=== PATIENT | female | born 1945 | race Caucasian/White ===

== ENCOUNTER → 2024-01-26 12:07 | Outpatient (REF) | payer MEDICARE, SELFPAY | LOC: WOUND 12:07 | PROVIDERS: ATTENDING PHYSICIAN Surgery; FAMILY PHYSICIAN Family Medicine | DX: L97.822 Non-pressure chronic ulcer of other part of left lower leg with fat layer exposed (principal); I87.2 Venous insufficiency (chronic) (peripheral); I73.9 Peripheral vascular disease, unspecified | CPT/HCPCS: 11042; 11043; 11045; 99204 ==

== ENCOUNTER → 2024-01-27 14:26 | Outpatient (REF) | payer MEDICARE, SELFPAY | LOC: HWRAD 14:26 | PROVIDERS: ATTENDING PHYSICIAN Internal Medicine Rheumatology; FAMILY PHYSICIAN Family Medicine | DX: M81.0 Age-related osteoporosis without current pathological fracture (principal) | CPT/HCPCS: 77080 ==

== ENCOUNTER → 2024-01-28 11:50 | Outpatient (REF) | payer MEDICARE, SELFPAY ==
[2024-01-28 13:13] LABS: % Basophils 0.4 % (0-2); % Eosinophils 4.4 % (0-6); % Immature Granulocytes 0.2 % (0-0.5); % Lymphocytes 21.6 % (20.5-51.1); % Monocytes 7.9 % (1.7-9.3); % Neutrophils 65.5 % (42.2-75.2); Absolute Eosinophils 0.2 10^3/uL (0-0.7); Absolute Lymphocytes 1.1 10^3/uL (1.2-3.4); Absolute Monocytes 0.4 10^3/uL (0.1-0.6); Absolute Neutrophils 3.4 10^3/uL (1.4-6.5); Hematocrit 34.5 % (37.0-47.0); Hemoglobin 11.1 g/dL (12.0-16.0); Mean Corp Hgb Conc. 32.2 g/dL (33.0-37.0); Mean Corpuscular Hgb 30.7 pg (27.0-31.0); Mean Corpuscular Volume 95.3 fL (81.0-99.0); Mean Platelet Volume 11.1 fL (7.4-10.4); Nucleated Red Blood Cells % 0 %; Platelet Count 211 10^3/uL (130-400); Red Blood Cell Count 3.62 10^6/uL (4.20-5.40); Red Cell Dist. Width 13.9 % (11.5-14.5); White Blood Cell Count 5.2 10^3/uL (4.8-10.8)
[2024-01-28 13:52] LABS: ALT (SGPT) 16 U/L (0-35); AST (SGOT) 28 U/L (14-36); Albumin 4.1 g/dl (3.5-5.0); Alkaline Phosphatase 78 U/L (38-126); Blood Urea Nitrogen 27 mg/dl (7-17); Calcium 9.1 mg/dl (8.4-10.2); Carbon Dioxide 29 mmol/L (22-30); Chloride 103 mmol/L (98-107); Glucose 89 mg/dl (70-99); Potassium 4.1 mmol/L (3.5-5.1); Sodium 135 mmol/L (135-145); Total Bilirubin 0.5 mg/dl (0.2-1.3); Total Protein 6.9 g/dl (6.3-8.2); eGFR > 60.00
[2024-01-28 14:08] LABS: Vitamin D, 25-OH*** 56.4 ng/mL (30-80)
[2024-01-28 14:22] LABS: TSH 2.03 uIU/ml (0.47-4.68)
[2024-01-29 00:13] LABS: IgA 325 mg/dl (70-400)
[2024-01-31 11:16] LABS: Intact PTH 62.2 pg/ml (13.6-85.8)
[2024-02-01 06:42] LABS: Endomysial IgA Antibody Titer <1:10 (<1:10)
[2024-02-04 15:50] LABS: tTG IgA Antibody 10.3 EU/ml (0-19)
[2024-02-04 15:51] LABS: tTG IgG Antibody 16.9 EU/ml (0-19)
== END ==
LOC: REG 11:50
PROVIDERS: ATTENDING PHYSICIAN Internal Medicine Rheumatology; FAMILY PHYSICIAN Family Medicine
DX: E55.9 Vitamin D deficiency, unspecified (principal); M81.0 Age-related osteoporosis without current pathological fracture; Z51.81 Encounter for therapeutic drug level monitoring
CPT/HCPCS: 36415; 80053; 82306; 82784; 83516; 83970; 84443; 85025; 86140; 86231

== ENCOUNTER → 2024-02-02 13:15 | Outpatient (REF) | payer MEDICARE, SELFPAY | LOC: WOUND 13:15 | PROVIDERS: ATTENDING PHYSICIAN Surgery; FAMILY PHYSICIAN Family Medicine | DX: I87.2 Venous insufficiency (chronic) (peripheral) (principal); L97.822 Non-pressure chronic ulcer of other part of left lower leg with fat layer exposed; I73.9 Peripheral vascular disease, unspecified | CPT/HCPCS: 11042 ==

== ENCOUNTER → 2024-02-09 11:10 | Outpatient (REF) | payer MEDICARE, SELFPAY | LOC: WOUND 11:10 | PROVIDERS: ATTENDING PHYSICIAN Surgery; FAMILY PHYSICIAN Family Medicine | DX: L97.822 Non-pressure chronic ulcer of other part of left lower leg with fat layer exposed (principal); I87.2 Venous insufficiency (chronic) (peripheral); I73.9 Peripheral vascular disease, unspecified | CPT/HCPCS: 11042 ==

== ENCOUNTER → 2024-02-20 11:12 | Outpatient (REF) | payer MEDICARE, SELFPAY | LOC: WOUND 11:12 | PROVIDERS: ATTENDING PHYSICIAN Surgery; FAMILY PHYSICIAN Family Medicine | DX: L97.822 Non-pressure chronic ulcer of other part of left lower leg with fat layer exposed (principal); I87.2 Venous insufficiency (chronic) (peripheral); I73.9 Peripheral vascular disease, unspecified | CPT/HCPCS: 11042 ==

== ENCOUNTER → 2024-03-01 10:31 | Outpatient (REF) | payer MEDICARE, SELFPAY | LOC: WOUND 10:31 | PROVIDERS: ATTENDING PHYSICIAN Surgery; FAMILY PHYSICIAN Family Medicine | DX: L97.822 Non-pressure chronic ulcer of other part of left lower leg with fat layer exposed (principal); I87.2 Venous insufficiency (chronic) (peripheral); I73.9 Peripheral vascular disease, unspecified | CPT/HCPCS: 11042 ==

== ENCOUNTER → 2024-03-15 10:21 | Outpatient (REF) | payer MEDICARE, SELFPAY | LOC: WOUND 10:21 | PROVIDERS: ATTENDING PHYSICIAN Surgery; FAMILY PHYSICIAN Family Medicine | DX: L97.822 Non-pressure chronic ulcer of other part of left lower leg with fat layer exposed (principal); I87.2 Venous insufficiency (chronic) (peripheral); I73.9 Peripheral vascular disease, unspecified | CPT/HCPCS: 11042 ==

== ENCOUNTER → 2024-03-23 13:24 | Outpatient (REF) | payer MEDICARE, SELFPAY | LOC: WOUND 13:24 | PROVIDERS: ATTENDING PHYSICIAN Surgery; FAMILY PHYSICIAN Family Medicine | DX: L97.822 Non-pressure chronic ulcer of other part of left lower leg with fat layer exposed (principal); I87.2 Venous insufficiency (chronic) (peripheral); I73.9 Peripheral vascular disease, unspecified | CPT/HCPCS: 11042 ==

== ENCOUNTER → 2024-03-29 10:27 | Outpatient (REF) | payer MEDICARE, SELFPAY | LOC: WOUND 10:27 | PROVIDERS: ATTENDING PHYSICIAN Surgery; FAMILY PHYSICIAN Family Medicine | DX: L97.822 Non-pressure chronic ulcer of other part of left lower leg with fat layer exposed (principal); I87.2 Venous insufficiency (chronic) (peripheral); I73.9 Peripheral vascular disease, unspecified | CPT/HCPCS: 11042 ==

== ENCOUNTER → 2024-04-06 08:52 | Outpatient (REF) | payer MEDICARE, SELFPAY | LOC: WOUND 08:52 | PROVIDERS: ATTENDING PHYSICIAN Surgery; FAMILY PHYSICIAN Family Medicine | DX: L97.822 Non-pressure chronic ulcer of other part of left lower leg with fat layer exposed (principal); I87.2 Venous insufficiency (chronic) (peripheral); I73.9 Peripheral vascular disease, unspecified | CPT/HCPCS: 11042 ==

== ENCOUNTER → 2024-04-22 08:48 | Outpatient (REF) | payer MEDICARE, SELFPAY | LOC: WOUND 08:48 | PROVIDERS: ATTENDING PHYSICIAN Surgery; FAMILY PHYSICIAN Family Medicine | DX: L97.822 Non-pressure chronic ulcer of other part of left lower leg with fat layer exposed (principal); I87.2 Venous insufficiency (chronic) (peripheral); I73.9 Peripheral vascular disease, unspecified | CPT/HCPCS: 11042 ==

== ENCOUNTER → 2024-05-07 09:36 | Outpatient (REF) | payer MEDICARE, SELFPAY | LOC: WOUND 09:36 | PROVIDERS: ATTENDING PHYSICIAN Surgery; FAMILY PHYSICIAN Family Medicine | DX: L97.822 Non-pressure chronic ulcer of other part of left lower leg with fat layer exposed (principal); I87.2 Venous insufficiency (chronic) (peripheral); I73.9 Peripheral vascular disease, unspecified | CPT/HCPCS: 11042 ==

== ENCOUNTER → 2024-06-01 14:37 | Outpatient (REF) | payer MEDICARE, SELFPAY | LOC: WOUND 14:37 | PROVIDERS: ATTENDING PHYSICIAN Surgery; FAMILY PHYSICIAN Family Medicine | DX: L97.822 Non-pressure chronic ulcer of other part of left lower leg with fat layer exposed (principal); I87.2 Venous insufficiency (chronic) (peripheral); I73.9 Peripheral vascular disease, unspecified | CPT/HCPCS: 99213 ==

== ENCOUNTER → 2024-06-15 13:00 | Outpatient (REF) | payer MEDICARE, SELFPAY | LOC: WOUND 13:00 | PROVIDERS: ATTENDING PHYSICIAN Surgery; FAMILY PHYSICIAN Family Medicine | DX: L97.822 Non-pressure chronic ulcer of other part of left lower leg with fat layer exposed (principal); I87.2 Venous insufficiency (chronic) (peripheral); I73.9 Peripheral vascular disease, unspecified | CPT/HCPCS: 99212 ==

== ENCOUNTER → 2024-06-29 14:05 | Outpatient (REF) | payer MEDICARE, SELFPAY | LOC: WOUND 14:05 | PROVIDERS: ATTENDING PHYSICIAN Surgery; FAMILY PHYSICIAN Family Medicine | DX: L97.822 Non-pressure chronic ulcer of other part of left lower leg with fat layer exposed (principal); I87.2 Venous insufficiency (chronic) (peripheral); I73.9 Peripheral vascular disease, unspecified | CPT/HCPCS: 99212 ==

== ENCOUNTER → 2024-07-20 13:07 | Outpatient (REF) | payer MEDICARE, SELFPAY | LOC: WOUND 13:07 | PROVIDERS: ATTENDING PHYSICIAN Surgery | DX: L97.822 Non-pressure chronic ulcer of other part of left lower leg with fat layer exposed (principal); I87.2 Venous insufficiency (chronic) (peripheral); I73.9 Peripheral vascular disease, unspecified | CPT/HCPCS: 99213 ==

== ENCOUNTER → 2024-08-05 10:15 | Outpatient (REF) | payer MEDICARE, SELFPAY | LOC: WOUND 10:15 | PROVIDERS: ATTENDING PHYSICIAN Surgery; FAMILY PHYSICIAN Family Medicine | DX: L97.822 Non-pressure chronic ulcer of other part of left lower leg with fat layer exposed (principal); I87.2 Venous insufficiency (chronic) (peripheral); I73.9 Peripheral vascular disease, unspecified | CPT/HCPCS: 99213 ==

== ENCOUNTER → 2024-08-19 08:44 | Outpatient (REF) | payer MEDICARE, SELFPAY | LOC: WOUND 08:44 | PROVIDERS: ATTENDING PHYSICIAN Surgery; FAMILY PHYSICIAN Family Medicine | DX: L97.822 Non-pressure chronic ulcer of other part of left lower leg with fat layer exposed (principal); I87.2 Venous insufficiency (chronic) (peripheral); I73.9 Peripheral vascular disease, unspecified | CPT/HCPCS: 99213 ==

== ENCOUNTER → 2024-09-02 08:35 | Outpatient (REF) | payer MEDICARE, SELFPAY | LOC: WOUND 08:35 | PROVIDERS: ATTENDING PHYSICIAN Surgery; FAMILY PHYSICIAN Family Medicine | DX: L97.822 Non-pressure chronic ulcer of other part of left lower leg with fat layer exposed (principal); I87.2 Venous insufficiency (chronic) (peripheral); I73.9 Peripheral vascular disease, unspecified | CPT/HCPCS: 99212 ==

== ENCOUNTER → 2024-09-14 13:54 | Outpatient (REF) | payer MEDICARE, SELFPAY | LOC: RAD 13:54 | PROVIDERS: ATTENDING PHYSICIAN Surgery; FAMILY PHYSICIAN Family Medicine | DX: L97.822 Non-pressure chronic ulcer of other part of left lower leg with fat layer exposed (principal) | CPT/HCPCS: 93922; 93925; 93970 ==

== ENCOUNTER → 2024-09-23 08:39 | Outpatient (REF) | payer MEDICARE, SELFPAY | LOC: WOUND 08:39 | PROVIDERS: ATTENDING PHYSICIAN Surgery; FAMILY PHYSICIAN Family Medicine | DX: L97.822 Non-pressure chronic ulcer of other part of left lower leg with fat layer exposed (principal); I87.2 Venous insufficiency (chronic) (peripheral); I73.9 Peripheral vascular disease, unspecified | CPT/HCPCS: 99212 ==

== ENCOUNTER → 2024-10-14 08:47 | Outpatient (REF) | payer MEDICARE, SELFPAY | LOC: WOUND 08:47 | PROVIDERS: ATTENDING PHYSICIAN Surgery; FAMILY PHYSICIAN Family Medicine | DX: L97.822 Non-pressure chronic ulcer of other part of left lower leg with fat layer exposed (principal); I87.2 Venous insufficiency (chronic) (peripheral); I73.9 Peripheral vascular disease, unspecified | CPT/HCPCS: 99212 ==

== ENCOUNTER → 2024-10-18 14:51 | Outpatient (REF) | payer MEDICARE, SELFPAY ==
[2024-10-18 16:22] LABS: Erythrocyte Sed Rate 31 mm/hour (0-20)
[2024-10-18 16:34] LABS: C-Reactive Protein < 5.00 mg/L (0.0-10.00)
== END ==
LOC: REG 14:51
PROVIDERS: ATTENDING PHYSICIAN Orthopaedic Surgery; FAMILY PHYSICIAN Family Medicine
DX: M86.9 Osteomyelitis, unspecified (principal)
CPT/HCPCS: 36415; 73523; 73552; 85652; 86140

== ENCOUNTER → 2024-11-05 08:38 | Outpatient (REF) | payer MEDICARE, SELFPAY | LOC: WOUND 08:38 | PROVIDERS: ATTENDING PHYSICIAN Surgery; FAMILY PHYSICIAN Family Medicine | DX: L97.822 Non-pressure chronic ulcer of other part of left lower leg with fat layer exposed (principal); I87.2 Venous insufficiency (chronic) (peripheral); I73.9 Peripheral vascular disease, unspecified | CPT/HCPCS: 99212 ==

== ENCOUNTER → 2024-12-06 08:43 | Outpatient (REF) | payer MEDICARE, SELFPAY | LOC: WOUND 08:43 | PROVIDERS: ATTENDING PHYSICIAN Surgery; FAMILY PHYSICIAN Family Medicine | DX: L97.822 Non-pressure chronic ulcer of other part of left lower leg with fat layer exposed (principal); I87.2 Venous insufficiency (chronic) (peripheral); I73.9 Peripheral vascular disease, unspecified | CPT/HCPCS: 99212 ==

== ENCOUNTER → 2024-12-27 09:34 | Outpatient (REF) | payer MEDICARE, SELFPAY | LOC: WOUND 09:34 | PROVIDERS: ATTENDING PHYSICIAN Surgery; FAMILY PHYSICIAN Family Medicine | DX: L97.822 Non-pressure chronic ulcer of other part of left lower leg with fat layer exposed (principal); I87.2 Venous insufficiency (chronic) (peripheral); I73.9 Peripheral vascular disease, unspecified | CPT/HCPCS: 99212 ==

== ENCOUNTER → 2025-01-11 10:15 | Outpatient (REF) | payer MEDICARE, SELFPAY | LOC: WOUND 10:15 | PROVIDERS: ATTENDING PHYSICIAN Surgery; FAMILY PHYSICIAN Family Medicine | DX: L97.822 Non-pressure chronic ulcer of other part of left lower leg with fat layer exposed (principal); I87.2 Venous insufficiency (chronic) (peripheral); I73.9 Peripheral vascular disease, unspecified | CPT/HCPCS: 99212 ==

== ENCOUNTER → 2025-02-17 09:29 | Outpatient (REF) | payer MEDICARE, SELFPAY ==
[2025-02-17 13:42] LABS: ALT (SGPT) 17 U/L (0-35); AST (SGOT) 27 U/L (14-36); Alkaline Phosphatase 66 U/L (38-126); Blood Urea Nitrogen 22 mg/dl (7-17); Calcium 9.7 mg/dl (8.4-10.2); Carbon Dioxide 33 mmol/L (22-30); Chloride 105 mmol/L (98-107); Glucose 101 mg/dl (70-99); Potassium 4.1 mmol/L (3.5-5.1); Sodium 142 mmol/L (135-145); Total Bilirubin 0.7 mg/dl (0.2-1.3); Total Protein 6.8 g/dl (6.3-8.2); eGFR > 60.00
== END ==
LOC: HWLAB 09:29
PROVIDERS: ATTENDING PHYSICIAN Internal Medicine Rheumatology; FAMILY PHYSICIAN Family Medicine
DX: M81.0 Age-related osteoporosis without current pathological fracture (principal)
CPT/HCPCS: 36415; 80053

== ENCOUNTER → 2025-10-12 09:46 | Outpatient (REF) | payer MEDICARE, SELFPAY ==
[2025-10-12 13:48] LABS: ALT (SGPT) 22 U/L (0-35); AST (SGOT) 31 U/L (14-36); Albumin 4.3 g/dl (3.5-5.0); Alkaline Phosphatase 57 U/L (38-126); Blood Urea Nitrogen 31 mg/dl (7-17); Calcium 9.7 mg/dl (8.4-10.2); Carbon Dioxide 31 mmol/L (22-30); Chloride 102 mmol/L (98-107); Glucose 89 mg/dl (70-99); Potassium 4.0 mmol/L (3.5-5.1); Sodium 137 mmol/L (135-145); Total Protein 7.5 g/dl (6.3-8.2); eGFR > 60.00
[2025-10-12 13:57] LABS: Vitamin D, 25-OH*** 63.1 ng/mL (30-80)
== END ==
LOC: HWLAB 09:46
PROVIDERS: ATTENDING PHYSICIAN Internal Medicine Rheumatology; FAMILY PHYSICIAN Family Medicine
DX: E55.9 Vitamin D deficiency, unspecified (principal); M81.0 Age-related osteoporosis without current pathological fracture
CPT/HCPCS: 36415; 80053; 82306

== ENCOUNTER 2025-10-25 23:16 | Inpatient (IN) | payer MEDICARE, SELFPAY ==
[2025-10-25] VITALS (8 sets, daily range): BP systolic 128–161; BP diastolic 62–92; BMI 24.6
[2025-10-25 20:04] LABS: Hematocrit 36.0 % (37.0-47.0); Hemoglobin 12.0 g/dL (12.0-16.0); Mean Corp Hgb Conc. 33.3 g/dL (33.0-37.0); Mean Corpuscular Volume 93.0 fL (81.0-99.0); Nucleated Red Blood Cells % 0 %; Platelet Count 150 10^3/uL (130-400); Red Cell Dist. Width 13.2 % (11.5-14.5)
[2025-10-25 20:22] LABS: ALT (SGPT) 17 U/L (0-35); AST (SGOT) 28 U/L (14-36); Albumin 3.9 g/dl (3.5-5.0); Alkaline Phosphatase 52 U/L (38-126); Blood Urea Nitrogen 35 mg/dl (7-17); Calcium 9.1 mg/dl (8.4-10.2); Carbon Dioxide 26 mmol/L (22-30); Chloride 99 mmol/L (98-107); Estimated Creatinine Clearance 33 ml/min; Glucose 104 mg/dl (70-99); Potassium 4.2 mmol/L (3.5-5.1); Sodium 131 mmol/L (135-145); Total Protein 7.0 g/dl (6.3-8.2); eGFR 46.33
[2025-10-25 20:30] LABS: Troponin I 0.171 ng/ml
--- NOTE | 2025-10-25 21:14 | ED.GENMED ---
History of Present Illness
General
Chief Complaint: Chest Pain
Source: patient
Exam Limitations: none
Time Seen by Provider: 10/25/25 20:12
Nursing documentation reviewed up to this point in time: agreed with
History of Present Illness
History of Present Illness:
The patient is a 80-year-old female with a past medical history of COPD and chronic right hip osteo, who comes in with complaints of chest pressure rating into her left shoulder. Patient reports symptoms started yesterday and evening and have been
intermittent. Patient reports that the pain is worse when she lays flat and improves upon sitting up. Patient presents in A-fib with RVR. She reports she has no history of A-fib. She denies shortness of breath and leg swelling. Patient is
requesting that we do a CRP and right hip x-ray on her, as she is due to get this done next week.
Past History
Past History
ED Past Medical History: COPD and Other (Chronic right hip osteo)
ED Past Surgical History: Cholecystectomy and Orthopedic
Social History
Tobacco: Non-smoker
Alcohol: Other
Drug: None
Personal: Other
Living: with family
Employment: Other
Family History
Family History: Other
Review of Systems
Review of Systems
Allergies reviewed?: Yes
All Other Systems: ROS reviewed and negative except as documented in HPI and ROS
Constitutional: Reports no symptoms
EENT: Reports no symptoms
Respiratory: Reports no symptoms
Cardiac: Reports chest pain
ABD/GI: Reports no symptoms
: Reports no symptoms
Musculoskeletal: Reports no symptoms
Skin: Reports no symptoms
Neurological: Reports no symptoms
Endocrine: Reports no symptoms
Hematologic/Lymphatic: Reports no symptoms
Psychiatric: Reports no symptoms
Phy Exam
Physical Exam
Physical Exam:
Physical Exam
General: Patient appears frail. Mildly tachypneic at rest
Neck: supple. no meningeal signs. normal psoterior pharynx
Heart: Tachycardic, irregular
Lungs: Decreased breath sounds bilaterally.
Abdomen: normal bowel sounds. not tender. no CVAT
Neuro: alert and oriented. no focal neurological deficits
Skin: no rash
Psychiatric: well kept. interactive and cooperative
Extremities: no edema. no calf tenderness. negative homans. good distal pulses
Scores
Heart Score for Chest Pain Patients
STEMI patient?: Yes (Patient has ST elevations that are concerning but has had little to no chest pain. Additionally, she has no reciprocal changes of ST depression.)
Course
Orders/Labs/Results
Orders:
Orders
10/25/25 19:25
Electrocardiogram (*1) Urgent
Reason for Study: Chest Pain
EKG- Treatment ONCE
10/25/25 19:52
C-Reactive Protein Urgent
Comment: ADD ON
Complete Blood Count/With Diff Urgent
Comprehensive Metabolic Panel Urgent
Troponin I Urgent
10/25/25 21:11
Add On- LAB Urgent
Tests Added?: CRP
CR Chest - 2 Views Urgent
Comment:
Reason For Exam: CP
Hip, Right 2-3 Views [CR Hip - RT w/wo Pel 2-3 Vw*] Urgent
Comment:
Reason For Exam: hx of osteo
Include a pelvis x-ray?: Yes
10/25/25 21:12
Heparin 3,900 units IV NOW STA
10/25/25 21:[address] Non Medication Order As Directed
Physician Order: PTT 6 hours after initial start of Heparin infusion
Above order entered?: Yes
10/25/25 21:15
Diltiazem 125 mg/125 ml Nss [Cardizem] 125 mg in 125 ml IV PER PROTOCOL
Initial dose in mg/hr, then titrate:: 5
Titrate to keep:: Heart rate 80-100 bpm
Titrate by mg/hr:: 5 mg/hr
Frequency of titrations (minutes):: 15
Maximum dose in mg/hr:: 15
Heparin 27403 Units/250 ml 25,000 units in 250 ml IV PER PROTOCOL
Weight to be used for heparin protocol in kilograms (kg):: 65
Protocol:: Cardiac Tx/Acute Coronary
PTT Goal Range to be used:: PTT 73 to 111 seconds
Order type:: Initial
INITIAL Infusion Dose (UNITS/KG/hr) & then follow protocol:: 12 units/kg/hr
Infusion Dose in UNITS/hr & then follow protocol (UNITS/hr):: 800
INFUSION RATE in mL/hr & then follow protocol (mL/hr):: 8
PTT less than or equal to 64 seconds:: Increase rate by 200 units/hr (+ 2 mL/hr)
PTT 64.1 to 72.9 seconds:: Increase rate by 100 units/hr (+ 1 mL/hr)
PTT 73 to 111 seconds:: Target Range. No change in rate.
PTT 111.1 to 130.9 seconds:: Decrease rate by 100 units/hr (- 1 mL/hr)
PTT 131 to 199.9 seconds:: HOLD for 1 hr. Then decrease rate by 200 units/hr (- 2 mL/hr)
PTT greater than or equal to 200 seconds:: HOLD for 2 hrs & Notify Provider. Then decrease by 200 units/hr (-
2 mL/hr)
Lab follow-up:: Each change, PTT q6h until 2 consecutive are therapeutic. Then PTT
daily.
10/25/25 21:27
PTT Urgent
Comment: Obtain baseline before beginning heparin infusion if not already collected
10/25/25 23:01
Admit/Transfer Patient As Directed
Co-Sign Provider:
Level of Care: Inpatient admission
Assign to:: IVU
Physician / Group: Josh
Diagnosis: A-Fib, Chest Pain
Reason for Hospitalization: A-Fib, Chest Pain
Expected length of stay greater than two midnights?: Yes
ELOS- Estimated Length of Stay in days: 3
I certify the patient meets the requirements for IP care: Yes
PRN Pain Medication Management As Directed
May give lesser potent ordered pain med per pt: Yes
preference::
Protocol:: Medication orders for pain may be administered in a
manner that supports deferring to patient preference
when the pt is:
- Requesting an ordered lesser potent pain medication.
Least to most potent pain medications are defined
as: acetaminophen < NSAID < tramadol < opioids
(morphine, oxycodone, hydromorphone).
- Requesting a lesser dose of the same medication IF
ORDERED.
- Requesting a less intrusive route of administration
if both routes are prescribed by the provider (PO <
IV).
10/25/25 23:02
Code Status As Directed
Resuscitation Status: Full Code
10/25/25 23:05
Nitroglycerin Sublingual [Nitrostat (Sublingual)] 0.4 mg SL NOW STA
10/25/25 23:14
EKG [Electrocardiogram (*1)] Urgent
Reason for Study: Chest Pain
10/26/25 03:40
PTT Routine
Abnormal Lab Results
10/25/25
19:52
WBC 13.0 H 10^3/uL
(4.8-10.8)
RBC 3.87 L 10^6/uL
(4.20-5.40)
Hct 36.0 L %
(37.0-47.0)
MPV 10.5 H fL
(7.4-10.4)
Absolute Neuts (auto) 10.4 H 10^3/uL
(1.4-6.5)
Absolute Monos (auto) 1.2 H 10^3/uL
(0.1-0.6)
Neutrophils % 80.0 H %
(42.2-75.2)
Lymphocytes % 9.9 L %
(20.5-51.1)
Monocytes % 9.5 H %
(1.7-9.3)
Sodium 131 L mmol/L
(135-145)
BUN 35 H mg/dl
(7-17)
Creatinine 1.2 H mg/dL
(0.6-1.0)
Glucose 104 H mg/dl
(70-99)
Troponin I 0.171 H* ng/ml
C-Reactive Protein > 270.00 H mg/L
(0.0-10.00)
10/25/25 19:52
10/25/25 19:52
Vital Signs
Initial and Last Documented VS:
Initial Vital Signs
Temp Pulse Resp BP Pulse Ox
99.1 F 129 15 161/92 94
10/25/25 19:33 10/25/25 19:33 10/25/25 19:33 10/25/25 19:33 10/25/25 19:33
Last Documented Vital Signs
Temp Pulse Resp BP Pulse Ox
99.1 F 91 19 137/66 93
10/25/25 19:33 10/25/25 23:30 10/25/25 23:30 10/25/25 23:30 10/25/25 23:15
MDM/Problems Addressed
Differential Diagnosis Includes:
A-fib with RVR, sinus tachycardia, CHF
MDM/Problems Addressed:
Patient presents with acute chest pain
Chronic conditions affecting care: COPD
Acute Exacerbation and/or Progression of Chronic Illness:
Patient may have acute exacerbation of COPD, however, I do not hear any wheezing and I feel her COPD is not an acute issue at this time
*Pulse Oximetry
SaO2: 93
Oxygen Mode of Delivery: Room air
Patient hypoxic: no
*EKG
Interpreted by ED Provider?: Yes
Interpretation: abnormal
Comparison EKG: changes noted
Rate: tachycardiac
Rhythm: a-fib
[place]: normal axis
Interval: normal interval
QRS Pattern: normal QRS
Ischemia: non-specific ST changes
*Munitions Worker Interpretation
Rate: tachycardiac
Interpretation: abnormal
Rhythm: a-fib
*Critical Care Note
Total Time (30-74mins, 75-104mins- exclusive of procedures): 45 min
comment:
45 min of critical care given to the patient including reassessing her chest pain, reviewing her EKGs, reviewing her lab work, speaking to cardiology, and counseling the patient and her daughter.
Data Reviewed
Review of Other/Old Records Reveals: Testing (Normal cardiac echo 2014)
Source: patient and family
Patient Management
Social determinants of health affecting care: Living situation and Strong social support
Update Note
Update Note:
Second EKG shows that patient is in a sinus rhythm with atypical ST elevations. Patient reports mild left shoulder pain. Patient given sublingual nitro. I personally spoke with Dr. Messer who felt that we should give patient aspirin and nitro
drip. We will monitor patient's second troponin and her pain. Additionally, we will repeat to do a third EKG shortly.
12:24 AM patient resting completely comfortable. Second troponin is slightly lower than first. Patient adamantly denies chest pain and shoulder pain. For now, we will hold off on Executive Administrator. Patient will remain on bedrest.
ED Attending Note
-
Portions of this chart may have been created with voice recognition software.� Occasional wrong word or��sound alike� substitutions may have occurred due to the inherent limitations of voice recognition software.
Discharge Plan
Departure
Patient Disposition: Admit
Date of Disposition: 10/25/25
Time of Disposition: 21:22
Admit to: Telemetry
Presentation/result/management discussed w/ accepting MD/DO: Hospitalist
Patient with high blood pressure during this ER visit?: Yes
Condition: Fair
Covid-19: Not Applicable
Discharge Problem:
Atrial fibrillation, new onset, Atrial fibrillation with RVR, Chest pain due to coronary artery disease
Interventions
Interventions:
*Risk Screen - Suicide Last Done: 10/25/25 19:33
*General Assessment Last Done: 10/25/25 19:33
*Neglect/Abuse Screening Last Done: 10/25/25 19:33
*ED COVID-19 Vaccine History Last Done: 10/25/25 19:33
*ED Influenza Vaccine History Last Done: 10/25/25 19:33
[facility] Fall Risk Assessment Tool Last Done: 10/25/25 20:04
ED- Cardiac Assessment Last Done: 10/25/25 20:06
[2025-10-25] MEDS: CARDIZEM 125 IV (21:28)
[2025-10-25] MEDS: HEPARIN 3900 UNITS IV (21:32)
[2025-10-25] MEDS: HEPARIN 25000 UNITS/250 ML IV (21:40)
[2025-10-25 21:53] LABS: APTT 32.4 Sec (23.4-35.0)
--- NOTE | 2025-10-25 23:05 | HPS.HSE ---
Family Physician
-
Family Physician: Tong Deutsch
Chief Complaint
-
Shoulder Pain
History of Present Illness
Patient is a 80y F with PMH significant for osteoarthritis who presents to ED complaining of L shoulder pain. Patient states that she was feeling well until Friday evening when she developed 'indigestion' with some heaviness and pressure in the
chest. This radiated to the L shoulder. Patient had persistent symptoms this AM and family convinced her to present to the ED for further evaluation. She denies any recent injury or trauma. She denies any associated palpitations, dyspnea or
diaphoresis. She denies any prior history of ID, CV disease, etc. Patient notes that her sister recently had coronary stent placed. She also had a friend who recently passed from ID after having very similar symptoms.
On arrival to the ED patient is noted to be in A-Fib with RVR. No prior history of A-Fib. She was started on IV diltiazem and is in a normal sinus rhythm with ectopy at the time of my examination.
She feels somewhat improved from arrival, but still notes L shoulder discomfort.
Medical History
Past Medical History
Past Medical History: Reports Other
Additional Past Medical History:
Osteoarthritis
Chronic Right Hip Infection
Past Surgical History: Reports Other
Additional Past Surgical History:
Bilateral RODNEY
Right Hip Hardware Removal / Spacer Placement / Wash-Out (2014)
MONIKA / BSO
Right Femur ORIF
Social History
Tobacco: Former Smoker (Very remote smoking history.)
Alcohol: Occasional
Drug: None
Family History
Family History: Other (Sister: CAD)
Allergies / Home Medications
Allergies reflects when Allergies were last updated in [facility].
Home Medications with original date entered in [facility]
Allergy/Medication List:
Allergies
Allergy/AdvReac Type Severity Reaction Status Date / Time
No Known Allergies Allergy Verified 10/06/17 19:47
Home Medications
multivitamin (Multi-Day tablet) 1 ea PO DAILY 09/09/15
Vitamin D 1 tab PO DAILY 10/06/17
amoxicillin 500 mg-potassium clavulanate 125 mg tablet 1 tab PO Q12 10/06/17
calcium carbonate (Antacid (calcium carbonate)) 1,000 mg PO HS 10/06/17
docusate sodium 100 mg capsule (Colace) 100 mg PO BID 10/06/17
oxycodone 5 mg tablet 5 mg PO PRN PRN pain 10/06/17
vitamins A,C,S-zsle-eglynd 4,296 mcg-226 mg-90 mg capsule (PreserVision AREDS) 1 cap PO DAILY 10/06/17
meloxicam 15 mg disintegrating tablet 15 mg 10/25/25
Review of Systems
-
History Source: Patient
A 12 point ROS was completed and negative except as noted: Yes
Constitutional: Denies Fever or Chills
EENT: Denies Sore Throat
Respiratory: Denies Cough or Trouble Breathing
Cardiac: Reports Chest Pain; Denies Diaphoresis, Palpitations or Syncope
Abdomen/GI: Denies Abdominal Pain, Nausea, Vomiting or Diarrhea
: Denies Dysuria, Frequency or Flank Pain
Musculoskeletal: Reports Joint Pain; Denies Edema
Neurological: Denies Dizzy or Headache
Psych: Denies Depression or Anxiety
Physical Exam
Vital Signs
Vital Signs
Temp Pulse Resp BP Pulse Ox
99.1 F 91 25 133/62 98
10/25/25 19:33 10/25/25 22:30 10/25/25 22:30 10/25/25 22:30 10/25/25 22:30
Physical Exam
General: Other (80y F in no acute distress.)
HEENT: Moist mucous membranes and PERRLA
Respiratory: Clear; No Wheezes, Rales or Rhonchi
Cardiac: S1/S2 and Regular Rhythm (with ectopy); No Murmur
GI: Soft, Non Tender, Non Distended and Normal Bowel Sounds
Musculoskeletal: No Clubbing, No Cyanosis and No Edema
Neuro: AO x 3
Laboratory Results
-
10/25/25 19:52
10/25/25:
Laboratory Results
APTT 32.4 Sec (23.4-35.0) 10/25/25 21:27
Total Bilirubin 1.2 mg/dl (0.2-1.3) 10/25/25 19:
AST 28 U/L (14-36) 10/25/25:
ALT 17 U/L (0-35) 10/25/25:
Alkaline Phosphatase 52 U/L (38-126) 10/25/25:52
Troponin I 0.171 ng/ml H* 10/25/25:52
Impression/Plan
-
A/P: Patient is a 80y F with PMH significant for arthritis and chronic R hip infection who presents to ED complaining of chest heaviness and L shoulder pain since last PM.
ACS
- Admit for further evaluation and treatment.
- EKG with A-Fib / sinus with ectopy and inferior ST-T changes concerning for active ischemia.
- Chest heaviness improved - but persistent L shoulder discomfort.
- ASA now. Continue IV heparin.
- IV NTG and titrate for pain free.
- Follow serial troponin to peak.
- Reviewed with Cardiology who advise current treatment and will follow serial EKG / troponin.
- Ischemic evaluation - in AM if stable or more urgently if rising trop, EKG progression or persistent pain.
Atrial Fibrillation - New
- Patient in A-Fib with rates as high as 130 in arrival.
- On IV Cardizem is no in sinus rhythm with ectopy.
- No complaints of palpitations. ST changes not appreciably different after rate / rhythm control achieved.
- Continue IV diltiazem and titrate as needed for rate control (off if able).
- Begin beta-alondra.
- IV heparin infusion as noted above.
- Cardiology evaluation as noted above.
Mild Hyponatremia
JAN
- ? pre-renal. Hold meloxicam / NSAIDs.
- IVFs overnight and follow for improvement in labs / lytes.
Chronic Right Hip Infection
- s/p RODNEY hardware removal in 2014 and on lifelong suppression abx.
- Continue Augmentin without interruption.
DVT Prophylaxis: On IV Heparin at present.
Code Status: Full
[2025-10-25] MEDS: NITROSTAT (SUBLINGUAL) 0.4 MG SL (23:12)
[2025-10-25 23:33] LABS: C-Reactive Protein > 270.00 mg/L (0.0-10.00)
[2025-10-25] MEDS: ASPIRIN 325 MG PO (23:53)
[2025-10-25] MEDS: LOW STRENGTH ASPIRIN 324 MG PO (23:53)
[2025-10-25] MEDS: NITROGLYCERIN PREMIX 250 IV (23:54)
[2025-10-26] VITALS (24 sets, daily range): BP systolic 101–177; BP diastolic 50–90; BMI 24.2
[2025-10-26 00:14] LABS: Troponin I 0.169 ng/ml
--- NOTE | 2025-10-26 00:40 | PTCARENOTE ---
patient arrived from ED on stretcher, bedside handoff completed with ED RN, Patient in a Fib/and NSR, EKG completed and given to CVICU/ IVU provider to review. No changes from prior EKGs. Patient on heparin GTT @ 800, Cardizem @ 5 and Nitro Gtt @5.
Denies pain at this time, no wounds noted on assessment. Have 3 PIV 2 on Right arm and 1 PIV on Left forearm, all infusing without issue. Alert and oriented completed all admission questions, moves all extremities, Right hipo joint removal has
lift for foot. Pulse all palatable. lungs clear bilaterally on room air, O2 sat 93%, has own walker in room and cell phone, apple watch anf bilateral hearing aids and chargers. bag of clothing and purse in closet. NPO at this time. See workflow
for complete assessment data.
[2025-10-26] MEDS: NSS 1000 IV ×2 (04:24→18:58)
[2025-10-26 04:45] LABS: APTT 45.2 Sec (23.4-35.0)
[2025-10-26 04:46] LABS: Blood Urea Nitrogen 39 mg/dl (7-17); Calcium 8.9 mg/dl (8.4-10.2); Carbon Dioxide 28 mmol/L (22-30); Chloride 99 mmol/L (98-107); Estimated Creatinine Clearance 33 ml/min; Glucose 94 mg/dl (70-99); HDL Cholesterol 78 mg/dl; LDL Cholesterol, Calculated 65 mg/dl; Potassium 4.0 mmol/L (3.5-5.1); Sodium 132 mmol/L (135-145); Very Low Density Lipoprotein 20 mg/dl (0-30); eGFR 46.33
[2025-10-26 04:57] LABS: Troponin I 0.179 ng/ml
--- NOTE | 2025-10-26 04:57 | PTCARENOTE ---
reassessed patient , resting, denies pain at this time, labs drawn and sent, sinus rhythm with SVPB, vital sign stable. call light with in reach.
[2025-10-26] MEDS: ZOFRAN 4 MG IV (05:59)
--- NOTE | 2025-10-26 07:30 | PTCARENOTE ---
Received patient at change of shift. AAOx3, VSS. SR with PAC's on tele, denies chest pain at this time. Cardizem gtt infusing at 5 ml/hr, Nitro gtt infusing at 1.5 ml/hr, Heparin gtt infusing at 10 ml/hr.
[2025-10-26 08:04] LABS: Glycohemoglobin (HgbA1c) 5.6 % (4.0-5.9)
[2025-10-26] MEDS: AUGMENTIN 500 MG/125 MG 1 TABLET PO ×2 (08:20→20:19)
[2025-10-26] MEDS: TOPROL XL 25 MG PO ×2 (08:21→20:19)
[2025-10-26] MEDS: LOW STRENGTH ASPIRIN 81 MG PO (08:21)
--- NOTE | 2025-10-26 09:47 | CON.CAR ---
Addendum entered and electronically signed by John Rodriguez MD 10/26/25 10:23:
I saw and examined the patient.
The Air Compressor Operator's note was reviewed and I agree with the note.
Comment: Briefly, 80-year-old woman past medical history of prostatic joint infection, former smoker, family history of CAD who presented to ER for evaluation of nausea and shoulder/back pain.
Initially found to be in atrial fibrillation with rapid ventricular response and spontaneously converted after a few hours; this is a new diagnosis for her.
Subsequent ECG showed ST elevations which were new compared to prior. Low-level troponin elevation noted 0.171�0.169�0.179. She was started on heparin drip and IV nitro with concern for ACS.
Presentation seems more consistent with pericarditis than ACS
Not describing classic anginal symptoms and troponin trend is overall flat
Describes shoulder discomfort which is positional in nature. ECG with diffuse ST elevations. CRP significantly elevated.
Check echo to assess for cardiomyopathy, regional wall motion abnormalities or pericardial effusion�further management will hinge on the results of this
For now would continue aspirin, heparin and beta-alondra
Maintaining sinus rhythm on review of telemetry
Continue beta-alondra
CHADS2 VASC at least 3 for age and sex
Would continue heparin gtt with plan to transition to oral anticoagulation prior to discharge
Rest per Lisa Augustine
Original Note:
Consultation
Consultation Request
Date/Time Consultation Performed: 10/26/25
Requesting Provider: Dr. Jeffers
Performing Provider: Lisa Augustine PA-C for Dr. Rodriguez
Reason for Consultation: CP
Medical History
-
Chief Complaint: CP
History of Present Illness:
Patient is a 80-year-old female with past medical history of right hip replacement with infection status post placement of spacer 10 years ago. This is reportedly been followed by Ortho with serial CRP levels. She reports initially they were very
elevated, however had returned to normal. She is scheduled for an upcoming appointment with them on 11/07 and has been ordered a hip x-ray as well as a CRP/ESR, which she had requested to be completed here. She reports she started with central to
left-sided chest discomfort into her shoulder, neck, and back which started while watching TV. She states it feels worse with laying flat and better with sitting up. She denies associated shortness of breath or lightheadedness. She currently
reports some nausea as well as constipation. She states she was given sublingual nitro as well as aspirin and started on IV heparin in ER, but did not significantly improve her symptoms. Her EKG was abnormal with initial concern for STEMI. Was
also in A-fib on arrival however spontaneously converted to sinus rhythm. Cardiology consulted for evaluation. Denies prior cardiac issues, and does not follow with restaurant hourly manager regularly. She does relay that her sister was recently admitted for
an [place] and required stenting. Denies personal history of hypertension, hyperlipidemia, diabetes.
PMH:
Right hip replacement with infection status post placement of spacer 10 years ago
Former smoker
History of hysterectomy
Past Medical History
Past Medical History: Other (in HPI)
Social History
Tobacco: Former Smoker
Alcohol: Occasional
Living: Alone
Employment: Retired
Family History
Family History: CAD (in sister)
Allergies / Home Medications
Allergy/AdvReac Type Severity Reaction Status Date / Time
No Known Allergies Allergy Verified 10/26/25 06:15
�Medication �Instructions �Recorded �Confirmed �Type
multivitamin (Multi-Day tablet) 1 ea PO DAILY 09/09/15 10/25/25 History
Vitamin D 1 tab PO DAILY 10/06/17 10/25/25 History
amoxicillin 500 mg-potassium 1 tab PO Q12 10/06/17 10/25/25 History
clavulanate 125 mg tablet
calcium carbonate (Antacid 1,000 mg PO HS 10/06/17 10/25/25 History
(calcium carbonate))
docusate sodium 100 mg capsule 100 mg PO BID 10/06/17 10/25/25 History
(Colace)
oxycodone 5 mg tablet 5 mg PO PRN PRN pain 10/06/17 10/25/25 History
vitamins A,C,R-xuoq-xwsgaf 4,296 1 cap PO DAILY 10/06/17 10/25/25 History
mcg-226 mg-90 mg capsule
(PreserVision AREDS)
meloxicam 15 mg disintegrating 15 mg PO PRN PRN Reduction Of 10/25/25 10/26/25 History
tablet Transepidermal Water Loss
Review of Systems
-
History Source: Patient
All other systems: Negative unless noted
Physical Exam
Vital Signs
Temp Pulse Resp BP Pulse Ox
99.1 F 86 18 120/70 91
10/26/25 07:14 10/26/25 08:21 10/26/25 07:14 10/26/25 08:21 10/26/25 07:14
Lab Results
10/25/25 19:52
10/26/25 04:12
Troponin I 0.179 ng/ml H* 10/26/25 04:12
Physical Exam
General: No Apparent Distress and Comfortable
HEENT: Normocephalic, Anicteric and Moist Mucous Membranes
Respiratory: Clear and Non Labored Respirations
Cardiac: S1/S2 and Regular Rhythm
GI: Soft, Non Tender, Non Distended and Normal Bowel Sounds
Musculoskeletal: No Clubbing, No Cyanosis and No Edema
Skin: Warm and Dry
Neuro: AO x 3
Impression / Plan
-
Primary Ophthalmic Pathologist: none prior to admission
Assessment:
Presentation with CP
Abnormal EKG, concern for pericarditis vs ACS
Elevated troponin
Leukocytosis
Elevated CRP
Atrial fibrillation, new diagnosis of unclear duration, paroxysmal
Hyponatremia
JAN vs CKD
Right hip replacement with infection status post placement of spacer 10 years ago
Former smoker
History of hysterectomy
ECHO 10/26/25: pending
Plan:
- Patient presents with acute onset of chest discomfort while sitting watching TV
- Patient also with leukocytosis and low-grade temps overnight. CRP significantly elevated (>270), she states most recent was within normal range from 10/17. Check ESR. She denies recent illnesses/URIs, fevers or chills. She denies recent
decrease in mobility from baseline, open areas, warmth, erythema of right hip. may require infectious eval and ortho eval. on augmentin as OP
- On arrival was noted to be in A-fib with RVR, new diagnosis of unclear duration. She spontaneously converted to sinus rhythm. Presently in sinus rhythm with ectopy on IV Cardizem gtt. at 5. Will stop IV Cardizem and continue Toprol
- [id number] score of 3 for age, female. Continue IV heparin for now, eventual transition to DOAC
- Unclear etiology of her chest discomfort. There was concern overnight as EKG abnormal for possible STEMI. On review of EKGs, ST elevation appears more diffuse, possibly consistent with pericarditis and patient also with positional component to
pain.
- Troponins flat in 0.1 range
- Will attempt to stop IV nitro gtt.
- continue asa
- Check stat echo
- Chest x-ray with mild cardiomegaly, but no acute processes noted
- LDL 65
- Pending results of echo, will dictate additional cardiac recommendations. May require inpatient ischemic evaluation
- medically complex
- d/w nursing
- d/w hospitalist
Data Reviewed
-
EKG: Tracing Personally Visualized and interpreted
Radiology: Report Reviewed by me
Labs: Labs Reviewed by me
Old Records: Reviewed
--- NOTE | 2025-10-26 10:00 | PTCARENOTE ---
Cardizem gtt and Nitro gtt discontinued at 0952 per order.
--- NOTE | 2025-10-26 10:08 | CM ---
Reviewed chart. Met with Mrs. Key to review discharge plans. She states prior to admission she resides alone in a spilt level home. She states she has stair glides on each level. She states prior to admission she ambulates with a rolling
walker or rollator. She states she has a rolling walker, rollator and single point cane. She states she has never had [facility]. She states she has been to [facility] in the past. Will need to see his current functional level to see if she
will have any skilled care needs. Medial work-up in progress. The discharge plan is to return home with VNA versus SNF/Rehab. if indicated when medically stable.
[2025-10-26] MEDS: COMPAZINE 10 MG IV (10:47)
--- NOTE | 2025-10-26 11:40 | W.PN.UPDATE ---
Update Note
Progress Note Update
echo without clear evidence of pericarditis or RWMA. given abnormal EKG with elevated troponin, will plan for cath today. procedure reviewed with patient and she is agreeable to proceed. NPO. d/w nursing. updated hospitalist via TT
[2025-10-26 11:53] LABS: Troponin I 0.144 ng/ml
--- NOTE | 2025-10-26 12:06 | PTCARENOTE ---
Received patient at change of shift. AAOx3, VSS. SR with PAC's on tele. Nitro gtt infusing at 10/hour, Cardizem gtt infusing at
--- NOTE | 2025-10-26 12:46 | W.PN.HOSP.TC ---
Today's Communication/Plan
-
cardiac cath
IV hep
carrds recs
Assessment / Plan
Assessment / Plan
General: in no acute distress
HEENT: Moist mucous membranes
Respiratory: Clear; No Wheezes, Rales or Rhonchi
Cardiac: S1/S2 and Regular Rhythm (with ectopy); No Murmur
GI: Soft, Non Tender, Non Distended and Normal Bowel Sounds
Musculoskeletal: No Clubbing, No Cyanosis and No Edema
Neuro: AO x 3
Patient is a 80y F with PMH significant for arthritis and chronic R hip infection who presents to ED complaining of chest heaviness and L shoulder pain since last PM.
Elevated troponin with concern for Type I MD
- EKG with A-Fib / sinus with ectopy and inferior ST-T changes concerning for active ischemia.
- Chest heaviness improved - but persistent L shoulder discomfort. CRP elevated noted.
- ASA now. Continue IV heparin.
- s/p IV NTG gtt
- A1C 5.6. LDL 65. Cont asa.
- ECHO with normal left ventricular size, thickness and function. No regional wall motion abnormality. EF 55 to 60%. Right ventricular size and systolic function. Aortic sclerosis without stenosis. Moderate tricuspid regurgitation. PASP 55
mmHg.
- Plan for cardiac catheterization
-
Atrial Fibrillation - New
- Patient in A-Fib with rates as high as 130 in arrival.
- On IV Cardizem is no in sinus rhythm with ectopy.
- No complaints of palpitations. ST changes not appreciably different after rate / rhythm control achieved.
- s/p IV diltiazem
- Toprol 25mg BID
- IV heparin infusion as noted above.
- Cardiology evaluation as noted above.
Mild Hyponatremia
JAN
- ? pre-renal. Hold meloxicam / NSAIDs.
- IVFs overnight and follow for improvement in labs / lytes. Na imrpoved to 132.
Chronic Right Hip Infection
- s/p RODNEY hardware removal in 2014 and on lifelong suppression abx.
- Continue Augmentin without interruption.
DVT Prophylaxis: On IV Heparin at present.
Code Status: Full
d/w with cardiology
Anticipated Discharge: > 48 hours
Subjective/Interval History
-
Date of Service: October 26, 2025
states of nausea
Denies cp earlier during rounds
Objective Data
-
Labs:
Laboratory Results
10/26/25 10/26/25 10/26/25
04:12 10:59 12:41
APTT 45.2 H Cancelled Pending
Sodium 132 L
Potassium 4.0
Chloride 99
Carbon Dioxide 28
BUN 39 H
Creatinine 1.2 H
Glucose 94
Calcium 8.9
Vital Signs:
Vital Signs
Temp Pulse Resp BP Pulse Ox
98.7 F 89 16 114/58 91
10/26/25 11:06 10/26/25 11:15 10/26/25 11:06 10/26/25 11:04 10/26/25 11:06
I&O
10/25/25 10/26/25 10/27/25
06:59 06:59 06:59
Intake Total 13.8 / 13.8
Balance 13.8 / 13.8
Data Reviewed
-
Total Time Spent with Patient (in minutes): 55
[2025-10-26 13:01] LABS: APTT 80.5 Sec (23.4-35.0)
--- NOTE | 2025-10-26 14:08 | PTCARENOTE ---
Report called to the irrigation laborer
--- NOTE | 2025-10-26 14:25 | ITS.CL.CATH ---
Electrical Lineman - Catheterization
Cardiac Catheterization
Procedure Report:
LEFT HEART CATHETERIZATION
Date of Procedure: October 26, 2025
Referring: John Rodriguez MD
PROCEDURES:
1. Left heart catheterization, coronary angiogram.
2. Moderate sedation.
INDICATION: Concern for NSTEMI
ACCESS: Right radial artery, 6Fr. sheath, under US guidance.
HEMODYNAMICS : (mmHg)
AO (s/d) : 107/58
LVEDP : 17
No significant gradient across the aortic valve to suggest aortic stenosis.
CORONARY FINDINGS
Dominance: Right
Left Main Trunk (LMT): Large caliber vessel that gives rise to the LAD and LCx branches and is free of angiographic disease.
Left Anterior Descending Artery (LAD): Large caliber vessel that gives off 2 major diagonal branches as it courses along the anterior inter-ventricular groove before wrapping around the cardiac apex. The LAD and its branches are free of
angiographic disease.
Left Circumflex Artery (LCx): Large caliber vessel that gives off 1 major obtuse marginal (OM) branch as it courses along the atrio-ventricular (AV) groove. The LCx and its branches are free of angiographic disease.
Right Coronary Artery (RCA): Large caliber dominant vessel that gives rise to the posterior descending artery (RPDA) and postero-lateral ventricular (RPLV) branches distally. The RCA and its branches are free of angiographic disease.
SEDATION: 27 minutes of procedural sedation was utilized. IV Midazolam and IV Fentanyl were administered. An independent medical planner was present to assist with and help manage the patient's level of consciousness and physiologic status.
RADIATION SUMMARY: Fluoro Time (min): 1.9, Dose (mGy): 164, DAP (Gy.cm2) : 8.33
Closure Device: There were no immediate intra-procedural complications. The sheath was pulled in the distillery laborer and a vascular-band applied to the right wrist for radial artery hemostasis using the patent hemostasis technique.
CONCLUSIONS
1. No obstructive coronary artery disease.
2. LVEDP of 17 mmHg.
RECOMMENDATIONS
1. Wean radial band per protocol. Monitor right hand perfusion and for bleeding from the radial site following removal of the vascular-band following trans-radial access.
2. Continue aggressive medical therapy and risk factor modification for secondary CAD prevention.
3. Hydrate with normal saline to mitigate the risk of contrast-induced acute kidney injury.
4. As long as no issues at the radial access site, okay for Eliquis starting tonight given new onset atrial fibrillation at around 10 PM.
Hannah Mcnamara MD, FACC, [facility]
Copy to: John Rodriguez MD
--- NOTE | 2025-10-26 15:19 | PTCARENOTE ---
Patient received from labor relations worker. Right radial band. VSS, no complaints of pain, call de la torre within reach.
[2025-10-26] MEDS: COLCHICINE 0.6 MG PO (16:06)
[2025-10-26] MEDS: ELIQUIS 5 MG PO (20:19)
[2025-10-26] MEDS: TYLENOL 650 MG PO (22:15)
[2025-10-26 22:47] LABS: Urine Character Clear (Clear)
--- NOTE | 2025-10-26 22:59 | PTCARENOTE ---
pt used call de la torre to ask for help ambulating to bedside commode. Urine analysis collected and sent to lab as ordered. After returning to bed pt used call de la torre again to report headache (rated at an 8/10) and nausea. VS take at this point with
fever of 100.4, pulse in the 80's, respirations 16/unlabored, and pulse ox at 90%. Pt appears to have chills, however warm to touch and reports being cold. Blankets removed and fluids encouraged. Fluids remain infusing as ordered. 2L of oxygen
applied via nasal canula and Tylenol given as ordered for headache. CLINICAL SCIENTIST Heavenly. updated.
BP 151/67 and Pulse ox 99% on 2L. Pt reported relief in cold sensation. Pt resting with call de la torre in reach. See MAR and flowchart for full pt care and assessment.
[2025-10-26 23:05] LABS: Urine Red Blood Cell 0-2 /HPF (0-2)
--- NOTE | 2025-10-26 23:45 | PTCARENOTE ---
Pt reports relief in nausea and headache. Current bp 113/57, current temp 98.1 and currently 99% on 2L. CHILO Burdick notified. Pt now resting with call de la torre in reach.
[2025-10-27] VITALS (12 sets, daily range): BP systolic 103–149; BP diastolic 60–88; PULSE 113; O2SAT 94; BMI 24.5
[2025-10-27] MEDS: NSS 1000 IV (04:51)
[2025-10-27 05:15] LABS: Hematocrit 31.7 % (37.0-47.0); Hemoglobin 10.5 g/dL (12.0-16.0); Mean Corp Hgb Conc. 33.1 g/dL (33.0-37.0); Mean Corpuscular Volume 93.5 fL (81.0-99.0); Platelet Count 144 10^3/uL (130-400); Red Cell Dist. Width 12.8 % (11.5-14.5)
[2025-10-27 05:39] LABS: Blood Urea Nitrogen 42 mg/dl (7-17); Calcium 8.3 mg/dl (8.4-10.2); Carbon Dioxide 28 mmol/L (22-30); Chloride 102 mmol/L (98-107); Estimated Creatinine Clearance 33 ml/min; Glucose 108 mg/dl (70-99); Potassium 4.9 mmol/L (3.5-5.1); Sodium 132 mmol/L (135-145); eGFR 46.33
[2025-10-27] MEDS: TOPROL XL 25 MG PO (08:13)
[2025-10-27] MEDS: AUGMENTIN 500 MG/125 MG 1 TABLET PO ×2 (08:13→20:19)
[2025-10-27] MEDS: ELIQUIS 5 MG PO ×2 (08:14→20:19)
[2025-10-27] MEDS: COLCHICINE 0.6 MG PO (08:14)
--- NOTE | 2025-10-27 08:15 | PTCARENOTE ---
Assumed care of patient at change of shift. AAOx3, VSS, temp 99.0. Afib on tele. Right radial site c/d/i. 98% on 2L O2. Patient is out of bed to bedside commode. Denies pain at this time. Call de la torre within reach, daughter at the bedside.
--- NOTE | 2025-10-27 12:06 | W.PN.CARDCBS ---
Addendum entered and electronically signed by John Rodriguez MD 10/27/25 18:09:
I saw and examined the patient on morning rounds.
The Grades 1 6 Tutor's note was reviewed and I agree with the note.
Comment: Briefly, 80-year-old woman presenting with chest discomfort identified as being in atrial fibrillation with rapid ventricular response which is a new diagnosis. Found to have low level troponin and diffuse ST changes on EKG. Underwent
left heart catheterization 10/26/2025 showing nonobstructive coronary disease. Overall her presentation seems most consistent with pericarditis.
Patient tells me her chest and shoulder discomfort has improved
Plan for colchicine for 3 months
Will be cautious with NSAIDs given JAN
Back in atrial fibrillation today. Increase metoprolol for better rate control. Goal heart rate less than 110 bpm.
Eliquis for risk reduction of cardioembolic stroke
Consider addition of amiodarone to maintain sinus rhythm
Discussed with patient's sister over the phone
Original Note:
Today's Communication / Plan
-
Increase Toprol
If remains in A-fib, would consider for amiodarone
Continue Eliquis
Continue colchicine
Infectious workup per primary service
Impression / Plan
-
Primary Radiologic Technology Program Director: none prior to admission
Assessment:
Presentation with CP
Abnormal EKG
Elevated troponin with nonobstructive CAD by cath
Concern for acute pericarditis
Leukocytosis
Elevated CRP
Atrial fibrillation, new diagnosis of unclear duration, paroxysmal
Hyponatremia
JAN vs CKD
Right hip replacement with infection status post placement of spacer 10 years ago
Former smoker
History of hysterectomy
ECHO 10/26/25: EF 55 to 60%, aortic sclerosis, mild to moderate TR, PAP 58 mmHg
Plan:
- Patient presents with acute onset of chest discomfort while sitting watching TV
- EKG with diffuse ST elevations and troponin which peaked at 0.179. Echocardiogram with normal EF and no significant valvular disease or regional wall motion abnormalities. She underwent cardiac catheterization negative for obstructive coronary
disease, and wedge of 17 mmHg on 10/26/2025
- Concern for pericarditis, so started on colchicine 0.6 mg daily given renal insufficiency, unclear if new or old, Stable at 1.2
- Also with leukocytosis, fever and chills overnight and significantly elevated CRP and ESR. Infectious workup per primary service. Urinalysis pending. Consider check blood cultures. She is reportedly on Augmentin as an outpatient given history
of right hip infection with spacer in place
- On arrival was noted to be in A-fib with RVR, new diagnosis. She spontaneously converted to sinus rhythm, however then around 5 AM went back into A-fib. Heart rates presently in 110s, however she increases into 140s with ambulation. Increase
Toprol dose, however if remains in A-fib, may need to consider amiodarone
- [id number] score of 3 for age, female. Continue IV heparin for now, eventual transition to DOAC
- d/w nursing
Progress Note - Radiologic Technology Program Director
Subjective
Date of Service: October 27, 2025
Reports some shortness of breath particularly with ambulation. No chest pains
Objective
Labs:
10/27/25 04:48
10/27/25 04:48
Labs
Hgb 10.5 g/dL (12.0-16.0) L 10/27/25 04:48
Hct 31.7 % (37.0-47.0) L 10/27/25 04:48
Plt Count 144 10^3/uL (130-400) 10/27/25 04:48
APTT Cancelled 10/26/25 18:30
Sodium 132 mmol/L (135-145) L 10/27/25 04:48
Potassium 4.9 mmol/L (3.5-5.1) 10/27/25 04:48
BUN 42 mg/dl (7-17) H 10/27/25 04:48
Creatinine 1.2 mg/dL (0.6-1.0) H 10/27/25 04:48
Glucose 108 mg/dl (70-99) H 10/27/25 04:48
Troponins
10/25/25 10/25/25 10/26/25
19:52 23:29 04:12
Troponin I 0.171 H* 0.169 H* 0.179 H*
10/26/25 10/26/25
10:59 18:45
Troponin I 0.144 H* Cancelled
Vital Signs and I&O:
Vital Signs
Temp Pulse Resp BP Pulse Ox
98.1 F 99 20 120/74 96
10/27/25 11:24 10/27/25 08:13 10/27/25 11:24 10/27/25 08:13 10/27/25 11:24
Vital Signs
Temp Pulse Resp BP Pulse Ox
98.1 F 99 20 120/74 96
10/27/25 11:24 10/27/25 08:13 10/27/25 11:24 10/27/25 08:13 10/27/25 11:24
Intake & Output
10/25/25 10/26/25 10/27/25 10/28/25
07:59 07:59 07:59 07:59
Intake Total 13.8 / 13.8 1459.5 / 1459.5
Output Total 700 / 700 200 / 200
Balance 13.8 / 13.8 759.5 / 759.5 -200 / -200
Physical Exam
Physical Exam
GEN: No distress, awake, alert, oriented x3. Sitting in chair
HEENT: supple, anicteric, mmm, EOMI
LUNGS: CTA B/L, no wheezes
CV: Irreg, S1/S2, no murmur
ABD: soft, BS+, NT/ND
EXT: No cyanosis, clubbing, edema
NEURO: Gross non-focal
SKIN: Warm, pink, dry. No rash
[2025-10-27] MEDS: TOPROL XL 12.5 MG PO (12:45)
--- NOTE | 2025-10-27 13:02 | W.PN.HOSP.TC ---
Today's Communication/Plan
-
Monitor temperature curve
Follow-up on urine culture check inflammatory markers in the morning
Monitor heart rate as Toprol dose adjusted
Assessment / Plan
Assessment / Plan
General: in no acute distress
HEENT: Moist mucous membranes
Respiratory: Clear; No Wheezes, Rales or Rhonchi
Cardiac: S1/S2, irregularly irregular. Heart rate 72 on telemetry A-fib
GI: Soft, Non Tender, Non Distended and Normal Bowel Sounds
Musculoskeletal: No Clubbing, No Cyanosis and No Edema
Neuro: AO x 3
Patient is a 80y F with PMH significant for arthritis and chronic R hip infection who presents to ED complaining of chest heaviness and L shoulder pain since last PM.
Nonischemic myocardial injury
- Status post IV heparin
- s/p IV NTG gtt
- A1C 5.6. LDL 65. Cont asa.
- ECHO with normal left ventricular size, thickness and function. No regional wall motion abnormality. EF 55 to 60%. Right ventricular size and systolic function. Aortic sclerosis without stenosis. Moderate tricuspid regurgitation. PASP 55
mmHg.
- Cardiac catheterization with nonobstructive coronary artery disease
Fevers
-No cough. No leukocytosis.
- Had inflammatory markers elevation-trend for now
- If concern for pericarditis? Leading to elevated inflammatory markers. Started on colchicine per cardiology
- Follow-up on the urine culture. If repeat episode of fever check blood cultures
- Fevers could be due to constipation.. Not having bowel movements nausea is also resolved.
- Monitor temperature curve
Atrial Fibrillation - New
- s/p IV diltiazem
- Toprol dose adjusted. Monitor heart rate with activity
- Eliquis 5 mg twice daily
- Cardiology following
Mild Hyponatremia
JAN
- ? pre-renal. Hold meloxicam / NSAIDs.
- Sodium of 132.
Chronic Right Hip Infection
- s/p RODNEY hardware removal in 2014 and on lifelong suppression abx.
- Continue Augmentin without interruption.
DVT Prophylaxis: On Eliquis
Code Status: Full
Discussed with family member at bedside and sister over the phone in detail
Anticipated Discharge: Within 24 hours
Subjective/Interval History
-
Date of Service: October 27, 2025
Overnight events noted
spiked mild fever
was constipated but now having bm
back into afib
Objective Data
-
Labs:
Laboratory Results
10/27/25
04:48
WBC 9.5
Hgb 10.5 L
Hct 31.7 L
Plt Count 144
Sodium 132 L
Potassium 4.9
Chloride 102
Carbon Dioxide 28
BUN 42 H
Creatinine 1.2 H
Glucose 108 H
Calcium 8.3 L
Vital Signs:
Vital Signs
Temp Pulse Resp BP Pulse Ox
98.1 F 110 20 134/80 96
10/27/25 11:24 10/27/25 12:45 10/27/25 11:24 10/27/25 12:45 10/27/25 11:24
I&O
10/26/25 10/27/25 10/28/25
06:59 06:59 06:59
Intake Total 13.8 / 13.8 1459.5 / 1459.5
Output Total 200 / 200 700 / 700
Balance 13.8 / 13.8 1259.5 / 1259.5 -700 / -700
Data Reviewed
-
Total Time Spent with Patient (in minutes): 55
--- NOTE | 2025-10-27 13:05 | CM ---
Reviewed chart. Met with Mrs. Key to review discharge plans. We reviewed [facility]. She wants to think about and will let me know.
Prior to admission she resides alone in a spilt level home. She has stair glides on each level. Prior to admission she ambulates with a rolling walker or rollator. She has a rolling walker, rollator and single point cane. She has never had [facility]
Services. She has been to [facility] in the past. Will need to see his current functional level to see if she will have any skilled care needs. Medical work-up in progress. The discharge plan is to return home with [facility]NA if she is agreeable
when medically stable.
[2025-10-27] MEDS: TOPROL XL 37.5 MG PO (20:20)
--- NOTE | 2025-10-27 21:47 | PTCARENOTE ---
assumed care of patient. AAOx3. AKIAK. b/l hearing aids. oob with a rolling walker-steady. R hip pain- chronic per patient. refusing any medication at this time. SR on tele 70s; PACs noted. bp stable. R radial site intact. removed dressing.
ecchymotic, + pulse. reviewed new medications with patient-verbalized understanding. answered all questions. call de la torre within reach.
[2025-10-28] VITALS (15 sets, daily range): BP systolic 131–162; BP diastolic 81–99; PULSE 110; BMI 24.5
--- NOTE | 2025-10-28 01:28 | PTCARENOTE ---
patient went back in afib rvr in the 120s at approx 0051. HR as high as 140s when oob to the bathroom. bp 141/98. patient denies any palps/cp. states feeling mild shortness of breath after walking from the bathroom. 'getting better,' after laying in
bed.
[2025-10-28 05:09] LABS: Blood Urea Nitrogen 25 mg/dl (7-17); Calcium 8.9 mg/dl (8.4-10.2); Carbon Dioxide 25 mmol/L (22-30); Chloride 106 mmol/L (98-107); Estimated Creatinine Clearance 50 ml/min; Glucose 112 mg/dl (70-99); Magnesium 2.3 mg/dl (1.6-2.3); Potassium 4.1 mmol/L (3.5-5.1); Sodium 135 mmol/L (135-145); eGFR > 60.00
[2025-10-28] MEDS: LOPRESSOR 5 MG IV (05:09)
--- NOTE | 2025-10-28 05:13 | PTCARENOTE ---
HR continues to be in afib. when resting 90s-100s. oob increased rate 140s. patient states worsening feeling of shortness of breath. 95% on RA. placed on 2L for comfort- 99%. updated Yamilet Silver burt LICENSING SPECIALIST. mag level added to morning labs- 2.3.
Lopressor IV 5mg ordered and given, see jan. bp 138/88. HR currently 101.
[2025-10-28] MEDS: AUGMENTIN 500 MG/125 MG 1 TABLET PO ×2 (07:56→19:50)
[2025-10-28] MEDS: ELIQUIS 5 MG PO ×2 (07:56→19:50)
[2025-10-28] MEDS: COLCHICINE 0.6 MG PO (07:56)
[2025-10-28] MEDS: TOPROL XL 37.5 MG PO (07:57)
--- NOTE | 2025-10-28 09:36 | CM ---
Addendum entered by Rowena Lafleur 10/28/25 11:24:
Received message from [facility], that she will need to have an appointment with her PCP office before they will agree to signing orders for [facility]. Appointment made for a tele-health appointment for Friday10/31/25 at 4:00 p.m. Left
massage for [facility].
Original Note:
Reviewed chart. Met with Mrs Key to review discharge plans, She states she is feeling better. We reviewed [facility] and she is agreeable to [facility]. She has selected [facility]. [facility]. Sent the referral. Prior to admission she resides alone in a spilt level home. She has stair glides on each level. Prior to admission she ambulates with a rolling walker or rollator. She has a rolling walker, rollator and single point
cane. She has never had [facility] Services. She has been to [facility] in the past. Will need to see his current functional level to see if she will have any skilled care needs. Medical work-up in progress. The discharge plan is to return home
with [facility] when medically stable.
[2025-10-28] MEDS: TOPROL XL 12.5 MG PO (11:04)
[2025-10-28] MEDS: VISBIOME 1 CAP PO (11:54)
--- NOTE | 2025-10-28 12:38 | W.PN.CARDCBS ---
Addendum entered and electronically signed by Saadia Regalado DO 10/29/25 06:36:
I saw and examined the patient 10/28/25
The Outdoor Recreation Specialist's note was reviewed and I agree with the note.
Comment: Late entry. Patient was seen and examined at bedside overall feeling better. Denies palpitations or tachycardia at rest, reports palpitations with higher heart rates during ambulation. No chest pain or pressure. Overnight with fever.
But denies cough or dysuria.Anxious to return home.
GEN: No distress, awake, alert, oriented x3.
HEENT: supple, anicteric, mmm, EOMI
LUNGS: CTA B/L, no wheezes
CV: Irreg, S1/S2, no murmur
ABD: soft, BS+, NT/ND
EXT: No cyanosis, clubbing, edema
Plan:
-Presents with acute onset of chest discomfort
-EKG with diffuse ST elevations and troponin which peaked at 0.179.
-Echocardiogram with normal EF and no significant valvular disease or regional wall motion abnormalities. No pericardial effusion
-She underwent cardiac catheterization negative for obstructive coronary disease, and wedge of 17 mmHg on 10/26/2025
-CRP >270 on admission; ESR/CRP downtrending. CRP today 187
-Concern for pericarditis, so started on colchicine for 3 months [Dose reduction for addition of amiodarone]
-No further chest pain
-New afib, currently in afib with HRs in 100s at rest and up to 140bpm with ambulation
-Continue Toprol-XL
-Add amiodarone 200 mg twice daily
-will observe overnight and check EKG in AM to reassess QTc
-continue eliquis
-will arrange OP cardiac follow up
-plan for DC in AM
Original Note:
Today's Communication / Plan
-
add amiodarone 200mg BID
decrease colchicine to 0.3mg daily
observe overnight
repeat EKG in AM
will arrange OP cardiac follow up
likely for DC tomorrow
Impression / Plan
-
Primary Crop Puller: none prior to admission
Assessment:
Presentation with CP
Abnormal EKG
Elevated troponin with nonobstructive CAD by cath
Concern for acute pericarditis
Leukocytosis
Elevated CRP
Atrial fibrillation, new diagnosis of unclear duration, paroxysmal
Hyponatremia
JAN vs CKD
Right hip replacement with infection status post placement of spacer 10 years ago
Former smoker
History of hysterectomy
ECHO 10/26/25: EF 55 to 60%, aortic sclerosis, mild to moderate TR, PAP 58 mmHg
Plan:
-Patient presents with acute onset of chest discomfort while sitting watching TV
-EKG with diffuse ST elevations and troponin which peaked at 0.179. Echocardiogram with normal EF and no significant valvular disease or regional wall motion abnormalities. She underwent cardiac catheterization negative for obstructive coronary
disease, and wedge of 17 mmHg on 10/26/2025
-diagnosed with new afib this admission. currently in afib with HRs in 100s however despite escalation in toprol dosing over the last 48 hours, HRs goes up to 140s with exertion and patient reports SOB with this. due to this we discussed initiation
of amiodarone 200mg BID.
-Concern for pericarditis, so started on colchicine, dose decreased to 0.3mg daily with addition of amiodarone, d/w pharmacy. no CP
-will observe overnight and check EKG in AM to reassess QTC
-continue toprol
-continue eliquis
-ESR/CRP downtrending
-will arrange OP cardiac follow up
-plan for DC in AM
Progress Note - Crop Puller
Subjective
Date of Service: October 28, 2025
reports SOB and heart pounding with exertion
Objective
Labs:
10/27/25 04:48
10/28/25 04:26
Labs
Hgb 10.5 g/dL (12.0-16.0) L 10/27/25 04:48
Hct 31.7 % (37.0-47.0) L 10/27/25 04:48
Plt Count 144 10^3/uL (130-400) 10/27/25 04:48
APTT Cancelled 10/26/25 18:30
Sodium 135 mmol/L (135-145) 10/28/25 04:26
Potassium 4.1 mmol/L (3.5-5.1) 10/28/25 04:26
BUN 25 mg/dl (7-17) H 10/28/25 04:26
Creatinine 0.8 mg/dL (0.6-1.0) 10/28/25 04:26
Glucose 112 mg/dl (70-99) H 10/28/25 04:26
Troponins
10/25/25 10/25/25 10/26/25
19:52 23:29 04:12
Troponin I 0.171 H* 0.169 H* 0.179 H*
10/26/25 10/26/25
10:59 18:45
Troponin I 0.144 H* Cancelled
Vital Signs and I&O:
Vital Signs
Temp Pulse Resp BP Pulse Ox
98.3 F 106 20 140/97 96
10/28/25 11:28 10/28/25 12:00 10/28/25 11:28 10/28/25 11:28 10/28/25 11:28
Vital Signs
Temp Pulse Resp BP Pulse Ox
98.3 F 106 20 140/97 96
10/28/25 11:28 10/28/25 12:00 10/28/25 11:28 10/28/25 11:28 10/28/25 11:28
Intake & Output
10/26/25 10/27/25 10/28/25 10/29/25
07:59 07:59 07:59 07:59
Intake Total 13. 1459.5 / 1459.5 880 / 880
Output Total 700 / 700 200 / 200
Balance .8 759.5 / 759.5 680 / 680
Physical Exam
Physical Exam
GEN: No distress, awake, alert, oriented x3.
HEENT: supple, anicteric, mmm, EOMI
LUNGS: CTA B/L, no wheezes
CV: Irreg, S1/S2, no murmur
ABD: soft, BS+, NT/ND
EXT: No cyanosis, clubbing, edema
NEURO: Gross non-focal
SKIN: Warm, pink, dry. No rash
--- NOTE | 2025-10-28 13:09 | W.PN.HOSP.TC ---
Today's Communication/Plan
-
Monitor heart rate
Cardiology following
Increase Toprol 50 twice daily
Continue Eliquis
Assessment / Plan
Assessment / Plan
General: in no acute distress
HEENT: Moist mucous membranes
Respiratory: Clear; No Wheezes, Rales or Rhonchi
Cardiac: S1/S2, irregularly irregular. Heart rate 72 on telemetry A-fib
GI: Soft, Non Tender, Non Distended and Normal Bowel Sounds
Musculoskeletal: No Clubbing, No Cyanosis and No Edema
Neuro: AO x 3
Patient is a 80y F with PMH significant for arthritis and chronic R hip infection who presents to ED complaining of chest heaviness and L shoulder pain since last PM.
Nonischemic myocardial injury
- Status post IV heparin
- s/p IV NTG gtt
- A1C 5.6. LDL 65. Cont asa.
- ECHO with normal left ventricular size, thickness and function. No regional wall motion abnormality. EF 55 to 60%. Right ventricular size and systolic function. Aortic sclerosis without stenosis. Moderate tricuspid regurgitation. PASP 55
mmHg.
- Cardiac catheterization with nonobstructive coronary artery disease
Fevers
-No cough. No leukocytosis.
- Had inflammatory markers elevation-improved
- If concern for pericarditis? Leading to elevated inflammatory markers. Started on colchicine per cardiology
- Urine culture negative
- Remains afebrile
- Monitor temperature curve
Atrial Fibrillation - New
- s/p IV diltiazem
- Toprol dose adjusted increased to 50 mg twice daily.
- Eliquis 5 mg twice daily
- Cardiology following
Concern for acute pericarditis
- Started on colchicine per cardiology
Mild Hyponatremia
JAN
- ? pre-renal. Hold meloxicam / NSAIDs.
- Sodium improved to 135. Creatinine down to 0.8.
Chronic Right Hip Infection
- s/p RODNEY hardware removal in 2014 and on lifelong suppression abx.
- Continue Augmentin without interruption.
Shortness of breath
- Required oxygenation however sats remained stable.
- Off oxygen now on room air.
DVT Prophylaxis: On Eliquis
Code Status: Full
Dispo-home VNA
Anticipated Discharge: Today
Subjective/Interval History
-
Date of Service: October 28, 2025
Remains in afib
having bm now
overnight was on oxygen but now on room air
Objective Data
-
Labs:
Laboratory Results
10/28/25
04:26
Sodium 135
Potassium 4.1
Chloride 106
Carbon Dioxide 25
BUN 25 H
Creatinine 0.8
Glucose 112 H
Calcium 8.9
Vital Signs:
Vital Signs
Temp Pulse Resp BP Pulse Ox
98.3 F 106 20 140/97 96
10/28/25 11:28 10/28/25 12:00 10/28/25 11:28 10/28/25 11:28 10/28/25 11:28
I&O
10/27/25 10/28/25 10/29/25
06:59 06:59 06:59
Intake Total 1459.5 / 1459.5 880 / 880
Output Total 200 / 200 700 / 700
Balance 1259.5 / 1259.5 180 / 180
Data Reviewed
-
Total Time Spent with Patient (in minutes): 55
[2025-10-28] MEDS: PACERONE 200 MG PO ×2 (13:26→19:50)
[2025-10-28] MEDS: TOPROL XL 50 MG PO (19:50)
--- NOTE | 2025-10-28 22:32 | PTCARENOTE ---
Received patient at change of shift. Afib on the monitor, HR in the 100s. R radial site ecchymotic, soft. No complaints from pt at this time, call de la torre within reach.
[2025-10-29 04:27] VITALS: BMI 24.2
[2025-10-29 04:35] VITALS: BP 141/93
--- NOTE | 2025-10-29 06:26 | PTCARENOTE ---
Patient converted from Afib to SR in the 70s. EKG obtained. NESS Silver notified.
[2025-10-29 08:28] VITALS: BP 168/83
[2025-10-29 08:30] VITALS: BP 162/81
[2025-10-29] MEDS: AUGMENTIN 500 MG/125 MG 1 TABLET PO (08:50)
[2025-10-29] MEDS: VISBIOME 1 CAP PO (08:51)
[2025-10-29] MEDS: COLCHICINE 0.3 MG PO (08:51)
[2025-10-29] MEDS: PACERONE 200 MG PO (08:51)
[2025-10-29] MEDS: TOPROL XL 50 MG PO (08:52)
[2025-10-29] MEDS: ELIQUIS 5 MG PO (08:52)
--- NOTE | 2025-10-29 11:22 | W.PN.CARDCBS ---
Addendum entered and electronically signed by Bj Crenshaw MD 10/29/25 12:58:
Patient interviewed and examined.
Note below reviewed.
Findings of Mamie Madrid confirmed, agree with assessment send recommendations unless otherwise specified.
164/86, pulse 75, respiratory rate 18, head neck exam unremarkable, few crackles in bases, regular rate and rhythm without obvious murmurs no pericardial friction rub JVD okay,
Telemetry, now in sinus rhythm on amiodarone
No labs today
EKG from this morning, sinus rhythm, QT interval acceptable nonspecific ST and T changes
EKG earlier today atrial fib with variable conduction
Impression:
As noted below
Plan:
Okay for discharge. Cardiac follow-up arranged.
Original Note:
Today's Communication / Plan
-
Continue amiodarone 200 mg twice daily for 2 weeks then 200 mg daily starting 11/13/2025
Continue colchicine 0.3 mg daily for 3 months
Continue Eliquis and Toprol
Outpatient cardiology follow-up has been arranged
Patient stable from cardiac standpoint for discharge
Impression / Plan
-
Primary Teletypesetter: none prior to admission, initial consultation Dr. Talley
Assessment:
Presentation 10/25/2025 with CP
Abnormal EKG
Elevated troponin with nonobstructive CAD by cath
Concern for acute pericarditis
Leukocytosis
Elevated CRP
Atrial fibrillation, new diagnosis of unclear duration, paroxysmal
Hyponatremia
JAN vs CKD
Right hip replacement with infection status post placement of spacer 10 years ago
Former smoker
History of hysterectomy
ECHO 10/26/25: EF 55 to 60%, aortic sclerosis, mild to moderate TR, PAP 58 mmHg
Plan:
-Presented 10/25/25 with acute onset of chest discomfort
-EKG with diffuse ST elevations and troponin which peaked at 0.179.
-Echocardiogram with normal EF and no significant valvular disease or regional wall motion abnormalities. No pericardial effusion
-She underwent cardiac catheterization negative for obstructive coronary disease, and wedge of 17 mmHg on 10/26/2025
-CRP >270 on admission; ESR/CRP downtrending. CRP 187 10/28
-Concern for pericarditis, so started on colchicine 0.3 mg for 3 months [Dose reduction for addition of amiodarone]
-No further chest pain
-New afib, this admission with variable heart rates worse with ambulation
-Continue Toprol-XL
- Placed on amiodarone 200 mg twice daily 10/28/2025. Patient converted to sinus rhythm after 2 doses on 10/29/2025.
- EKG in sinus rhythm on morning of 10/29/2025 shows normal sinus rhythm with QTc 442 ms.
-Plan is for amiodarone 200 mg twice daily for 2 weeks then 200 mg daily after
-continue eliquis
-will arrange OP cardiac follow up.
-plan for DC in AM
Progress Note - Teletypesetter
Subjective
Date of Service: October 29, 2025
Objective
Labs:
10/27/25 04:48
10/28/25 04:26
Labs
Hgb 10.5 g/dL (12.0-16.0) L 10/27/25 04:48
Hct 31.7 % (37.0-47.0) L 10/27/25 04:48
Plt Count 144 10^3/uL (130-400) 10/27/25 04:48
APTT Cancelled 10/26/25 18:30
Sodium 135 mmol/L (135-145) 10/28/25 04:26
Potassium 4.1 mmol/L (3.5-5.1) 10/28/25 04:26
BUN 25 mg/dl (7-17) H 10/28/25 04:26
Creatinine 0.8 mg/dL (0.6-1.0) 10/28/25 04:26
Glucose 112 mg/dl (70-99) H 10/28/25 04:26
Troponins
10/26/25 10/26/25
10:59 18:45
Troponin I 0.144 H* Cancelled
Vital Signs and I&O:
Vital Signs
Temp Pulse Resp BP Pulse Ox
97.7 F 73 18 141/93 97
10/29/25 08:29 10/29/25 08:29 10/29/25 08:29 10/29/25 04:35 10/29/25 08:29
Vital Signs
Temp Pulse Resp BP Pulse Ox
97.7 F 73 18 141/93 97
10/29/25 08:29 10/29/25 08:29 10/29/25 08:29 10/29/25 04:35 10/29/25 08:29
Intake & Output
10/27/25 10/28/25 10/29/25 10/30/25
06:59 06:59 06:59 06:59
Intake Total 1459.5 / 1459.5 880 / 880 480 / 480
Output Total 200 / 200 700 / 700
Balance 1259.5 / 1259.5 180 / 180 480 / 480
Physical Exam
Physical Exam
GEN: No distress, awake, Ox3
HEENT: supple, anicteric, mmm
LUNGS: Faint crackles at left base otherwise CTA, no wheezes/rales
CV: Reg, S1/S2, no murmur, rub or gallop
ABD: soft, BS+, NT/ND
EXT: No edema, clubbing or cyanosis
NEURO: Gross non-focal
SKIN: No rash, warm, dry, pink
--- NOTE | 2025-10-29 11:45 | W.PN.HOSP.TC ---
Today's Communication/Plan
-
dc home
OP cards f/u
Assessment / Plan
Assessment / Plan
General: in no acute distress
HEENT: Moist mucous membranes
Respiratory: non labored respiration
Cardiac: S1/S2, regular- Heart rate 70-75 on telemetry A-fib
GI: Non Distended
Musculoskeletal: No Clubbing, No Cyanosis and No Edema
Neuro: AO x 3
Patient is a 80y F with PMH significant for arthritis and chronic R hip infection who presents to ED complaining of chest heaviness and L shoulder pain since last PM.
Nonischemic myocardial injury
- Status post IV heparin
- s/p IV NTG gtt
- A1C 5.6. LDL 65. Cont asa.
- ECHO with normal left ventricular size, thickness and function. No regional wall motion abnormality. EF 55 to 60%. Right ventricular size and systolic function. Aortic sclerosis without stenosis. Moderate tricuspid regurgitation. PASP 55
mmHg.
- Cardiac catheterization with nonobstructive coronary artery disease
Fevers
-No cough. No leukocytosis.
- Had inflammatory markers elevation-improved
- pericarditis? Leading to elevated inflammatory markers? Started on colchicine per cardiology-dose decreased 0.3mg daily. did talk about diarrhea as possible S/E of colchicine and to monitor symptoms.
- Urine culture negative
- Remains afebrile
- Monitor temperature curve
Atrial Fibrillation - New
- s/p IV diltiazem
- Toprol dose adjusted increased to 50 mg twice daily.
- Eliquis 5 mg twice daily. Amiodarone added on 10/28-converted to NSR. Plan for 200mg till 11/13 than daily.
- Cardiology following
Concern for acute pericarditis
- Started on colchicine per cardiology
Mild Hyponatremia
JAN
- ? pre-renal. DC meloxicam / NSAIDs.
- Sodium improved to 135. Creatinine down to 0.8.
Chronic Right Hip Infection
- s/p RODNEY hardware removal in 2014 and on lifelong suppression abx.
- Continue Augmentin without interruption.
Shortness of breath
- Required oxygenation however sats remained stable.
- Off oxygen now on room air.
DVT Prophylaxis: On Eliquis
Code Status: Full
Dispo-home VNA
More than 30 minutes spent in discharge including
Final examination of the patient
Summarizing hospital stay
Instructions for continuing care to all relevant caregivers
Preparation of discharge records, prescriptions, and referral forms
Total time spent (in minutes): 55
Anticipated Discharge: Today
Subjective/Interval History
-
Date of Service: October 29, 2025
feeling better
converted to nsr
Objective Data
-
Vital Signs:
Vital Signs
Temp Pulse Resp BP Pulse Ox
97.7 F 73 18 141/93 97
10/29/25 08:29 10/29/25 08:29 10/29/25 08:29 10/29/25 04:35 10/29/25 08:29
I&O
10/28/25 10/29/25 10/30/25
06:59 06:59 06:59
Intake Total 880 / 880 480 / 480
Output Total 700 / 700
Balance 180 / 180 480 / 480
--- NOTE | 2025-10-29 12:12 | W.DCSUMMARY ---
Discharge Summary
Discharge Data
Date of Admission: 10/25/25
Date of Discharge: 10/29/25
-
Pending Results: No
Hospital Course
80y F with PMH significant for arthritis and chronic R hip infection who presents to ED complaining of chest heaviness and L shoulder pain. Patient was found to be in atrial fibrillation with rapid ventricular response. Also with elevated
troponin. Patient was eval by cardiology during hospitalization. Upon admission patient was started on IV heparin, IV nitroglycerin and Cardizem drip. Patient converted to normal sinus rhythm. Cardizem drip was discontinued. There was concern
for acute pericarditis and patient was started on colchicine per cardiology. Dose was further decreased. Patient underwent echocardiogram ECHO with normal left ventricular size, thickness and function. No regional wall motion abnormality. EF 55
to 60%. Right ventricular size and systolic function. Aortic sclerosis without stenosis. Moderate tricuspid regurgitation. PASP 55 mmHg. Cardiac catheterization with nonobstructive coronary artery disease. Aspirin was discontinued. IV heparin
was discontinued. Patient was started on Eliquis. Patient went back into atrial fibrillation few times. Toprol dose was adjusted. Patient was started on amiodarone. Patient converted back to normal sinus rhythm. Heart rate was well-controlled.
Chest pain chest heaviness and shortness of breath resolved. Upon discharge patient will be discharged on amiodarone 200 mg twice daily for additional 2 weeks then daily, Toprol, Eliquis and colchicine.
Discharge Plan
-
Patient Disposition: Home (Routine Discharge)
Discharge Diagnosis/Procedures: Atrial fibrillation with rapid ventricular response
cardiac cath
suspected pericarditis
Diet: Low Sodium
Driving Restrictions: As prior to admission
Activity Restrictions/Additional Instructions:
You will go home on amiodarone 200 mg twice a day for 2 weeks. Starting November 13 reduce amiodarone to 200 mg once a day
You were started on Eliquis 5 mg twice a day which is a blood thinner to reduce the risk of you having a stroke. Please do not stop this medication
You have been started on metoprolol which helps keep your heart in normal rhythm as well as helps keep your blood pressure well-controlled.
You have been started on colchicine which helps with inflammation around the heart. You will be on this for 3 months.
Stand Alone Forms: DC Instructions- Cath/EP Lab
Referrals:
[facility]iting Nurs [Outside]
Mamie Madrid PA-C [Specified Professional Personl, Cardiology] - 11/15/25 2:00 pm
Referral Note: You have cardiology follow-up with Mamie Madrid PA-C on November 15 at 2 PM [address] in [address] [facility] which is located behind the hospital. If you are unable to make this appointment please call [phone] to reschedule
Tong Deutsch DO [Family Provider, Family Practice] - 10/31/25 4:00 pm
Referral Note: Tele-health Appointment with Mona Jenkins. They will send you an email to link into the visit.
Prescriptions:
New
amiodarone [Pacerone] 200 mg Tablet
See Rx Instructions .ROUTE .COMPLEX Qty: 50 0RF
Rx Instructions:
Continue amiodarone 200 mg twice daily for 2 weeks then 200 mg daily starting 11/13/2025
metoprolol succinate 50 mg Tablet Extended Release 24 Hr
50 mg PO BID Qty: 60 0RF
colchicine 0.6 mg Tablet
0.3 mg PO DAILY Qty: 30 0RF
Eliquis 5 mg Tablet
5 mg PO BID Qty: 60 0RF
Continued
multivitamin [Multi-Day] 1 EACH tablet
1 ea PO DAILY
calcium carbonate [Antacid (calcium carbonate)] 1 TABLET tablet,chewable
1,000 mg PO HS
docusate sodium [Colace] 100 MG capsule
100 mg PO BID
oxycodone 5 MG tablet
5 mg PO PRN PRN (Reason: pain)
PreserVision AREDS 1 CAP capsule
1 cap PO DAILY
Vitamin D
1 tab PO DAILY
amoxicillin-pot clavulanate 1 TABLET tablet
1 tab PO Q12
Discontinued
meloxicam 15 mg Tablet,Disintegrating
15 mg PO PRN PRN (Reason: Reduction Of Transepidermal Water Loss)
Discharge Orders:
Discharge Patient (As Directed); Ordered 10/29/25
Ordered By: Arturo Jeffers
Care Plan Goals
Care Plan Goals:
Problem: Readiness for enhanced knowledge related to diagnosis and treatment plan
Goal: Understand your diagnosis and treatment plan needs, including medications if applicable.
Instructions: Know your diagnosis, underlying causes and treatment plan options, including medications if applicable. Consult with your health care team to learn about your diagnosis and treatment plan, including medications if applicable.
Discharge Date and Time
Print Language: CITIZEN OF [place]
[2025-10-29 12:38] VITALS: BP 175/95
[2025-10-29 12:41] VITALS: BP 164/86
--- NOTE | 2025-10-29 15:17 | PTCARENOTE ---
10/29/25 1430 D/C order received, IV and Telem pack removed. Reviewed discharge instructions, medications and follow up appointments with patient. Answered all questions, support given. Pt escorted out of hospital in wheelchair w/belongings,
== END 2025-10-29 15:21 | disposition home or self-care (01) | DRG 287 ==
LOC: IVU 23:16
PROVIDERS: Emergency Medicine; Internal Medicine Interventional Cardiology; Physician Assistant; ADMITTING PHYSICIAN Hospitalist; ATTENDING PHYSICIAN Hospitalist; CONSULT PHYSICIAN Internal Medicine Cardiovascular Disease; EMERGENCY PHYSICIAN Emergency Medicine; FAMILY PHYSICIAN Family Medicine
PROC: B2111ZZ Fluoroscopy of Multiple Coronary Arteries using Low Osmolar Contrast (ICD-10-PCS; 2025-10-26)
PROC: 4A023N7 Measurement of Cardiac Sampling and Pressure, Left Heart, Percutaneous Approach (ICD-10-PCS; 2025-10-26)
DX: I48.91 Unspecified atrial fibrillation (principal); E87.1 Hypo-osmolality and hyponatremia; N17.9 Acute kidney failure, unspecified; I5A Non-ischemic myocardial injury (non-traumatic); I31.9 Disease of pericardium, unspecified; I25.10 Atherosclerotic heart disease of native coronary artery without angina pectoris; J44.9 Chronic obstructive pulmonary disease, unspecified; D72.829 Elevated white blood cell count, unspecified; I70.0 Atherosclerosis of aorta; K59.00 Constipation, unspecified; M19.90 Unspecified osteoarthritis, unspecified site; I07.1 Rheumatic tricuspid insufficiency; R79.82 Elevated C-reactive protein (CRP); T84.51XS Infection and inflammatory reaction due to internal right hip prosthesis, sequela; Y83.1 Surgical operation with implant of artificial internal device as the cause of abnormal reaction of the patient, or of later complication, without mention of misadventure at the time of the procedure; Z96.641 Presence of right artificial hip joint; Z60.2 Problems related to living alone; Z90.710 Acquired absence of both cervix and uterus; Z90.49 Acquired absence of other specified parts of digestive tract; Z87.891 Personal history of nicotine dependence; Z79.2 Long term (current) use of antibiotics; Z82.49 Family history of ischemic heart disease and other diseases of the circulatory system; Z79.899 Other long term (current) drug therapy
CPT/HCPCS: 71046; 73502; 80048; 80053; 80061; 81003; 81015; 83036; 83735; 84443; 84484; 85025; 85027; 85652; 85730; 86140; 87086; 93005; 93306; 93458; 96365; 96366; 96367; 97116; 97163; 97530; 99152; 99153; 99291; C1769; Q9967

== ENCOUNTER → 2025-11-04 13:46 | Outpatient (REF) | payer MEDICARE, SELFPAY | LOC: HWRAD 13:46 | PROVIDERS: ATTENDING PHYSICIAN Internal Medicine Rheumatology; FAMILY PHYSICIAN Family Medicine | DX: M81.0 Age-related osteoporosis without current pathological fracture (principal) | CPT/HCPCS: 77080 ==